=== PATIENT | male | born 1955 | race Two or more races ===

== ENCOUNTER 2020-02-01 09:12 | Inpatient (IN) | payer MEDICARE, OTHER ==
[2020-02-01] VITALS (13 sets, daily range): BP systolic 136–167; BP diastolic 72–95
[~2020-02-01] VITALS: Ht 162.6 cm; Wt 73.4 kg
[~2020-02-01 09:12] MED LIST: ASPIRIN EC81 MG ORAL; Acetaminophen (Non formulary) 100 ML IV ONE; Atropine Sulfate 0.4mg/ml inj IVP PRN; CARVEDILOL25 MG ORAL; DiphenhydrAMINE 50mg/ml Inj IVP PRN; HYDROcodone/Acetamin 5/325 tab ORAL PRN; HYDROcodone/Acetamin 7.5/325 tab ORAL PRN; Hydromorphone 0.5mg/0.5ml inj IVP PRN; Ketorolac 30mg Inj IV PRN; LORazepam Inj 2mg/ml 1ml IV PRN; LOSARTAN POTASS50 MG ORAL; LR 1000ml 1,000 ML IVLG SCH; Labetalol 5mg/ml 20ml vial IV PRN; METFORMIN HCL500 M1 ORAL; Meperidine 25mg/1ml Inj (FOR RIGORS ONLY) IV PRN; Metoclopramide 10mg/2ml Inj IVP PRN; Midazolam 2mg/2ml Inj IVP PRN; PRILOSEC OTC20 MG ORAL; RANEXA500 MG ORAL; TRADJENTA5 MG PO; ceFAZolin sod 1 GM in NS 55 ML IVPB ONE; oxyCODONE HCL/Acetaminophen 5/325mg ORAL PRN
--- NOTE | 2020-02-01 10:19 | Anethesia Preoperative Eval ---
Anesthesia Pre-op PMH/ROS General Date of Evaluation: Feb 01, 2020 Time of Evaluation: 11:53 Anesthesiologist: Carri ASA Score: ASA 3 Mallampati Score Class I : Soft palate, uvula, fauces, pillars visible Class II: Soft palate, uvula, fauces visible Class III: Soft palate, base of uvula visible Class IV: Only hard plate visible Mallampati Classification: Class III Surgeon: Molina Diagnosis: Abd Pain Surgical Procedure: Right Laparoscopic vs open Nephrectomy Anesthesia History: none Family History: no anesthesia problems Allergies: Coded Allergies: LISINOPRIL (Verified Allergy, Intermediate, ' throat closes up', 01/31/20) Medications: see eMAR Patient NPO?: Yes Past Medical History Cardiovascular: Reports: HTN, CAD - Stent, other - HL Gastrointestinal/Genitourinary: Reports: GERD Endocrine: Reports: DM Other: obesity - BMI 34 Anesthesia Pre-op Phys. Exam Physician Exam Vital Signs Date Time Temp Pulse Resp B/P (MAP) Pulse Ox O2 Delivery O2 Flow Rate FiO2 02/01/20 10:15 Room Air 02/01/20 10:35 98.2 83 18 144/77 (99) 98 Constitutional: NAD Neurologic: CN 2-12 intact Cardiovascular: RRR Respiratory: CTA Gastrointestinal: S/NT/ND Airway Exam Mallampati Score: Class III MO: limited ROM: limited Teeth: missing, intact Anesthesia Pre-op A/P Risk Assessment & Plan Assessment: ASA 3 Plan: GA, SED, GlideScope Status Change Before Surgery: No Pre-Antibiotics Dru Grm Ancef IV Given Within 1 Hr of Incision: Yes Time Given: 12:06 Alexey Christina MD Feb 01, 2020 10:18
--- NOTE | 2020-02-01 10:31 | Pre-Procedure Note/Attestation ---
Pre-Procedure Note/Attestation Complete Prior to Procedure Planned Procedure: right Procedure Narrative: Right radical nephrectomy Indications for Procedure Pre-Operative Diagnosis: right renal mass Attestation I attest that I discussed the nature of the procedure; its benefits; risks and complications; and alternatives (and the risks and benefits of such alternatives), prior to the procedure, with the patient (or the patient's legal benefits representative). I attest that, if there was a reasonable possibility of needing a blood transfusion, the patient (or the patient's legal benefits representative) was given the [facility] standardized written summary, pursuant to the Keshawn Juan M Blood Safety Act ([place] Health and Safety Code # 1645, as amended). I attest that I re-evaluated the patient just prior to the surgery and that there has been no change in the patient's H&P, except as documented below: Saúl Auguste MD Feb 01, 2020 10:31
[2020-02-01] MEDS ORDERED: Lidocaine 1% MPF 10mg/ml 5ml ONE (11:07)
[2020-02-01] MEDS ORDERED: Sodium Chloride 10ml vial INJ ONE (11:07)
[2020-02-01] MEDS ORDERED: fentaNYL 100 mcg/2 mL IV ONE (11:53)
[2020-02-01] MEDS ORDERED: Bupivacaine 0.5% Inj 30 ml vial INJ ONE (11:53)
[2020-02-01] MEDS ORDERED: Midazolam 2mg/2ml Inj ONE (11:54)
[2020-02-01] MEDS ORDERED: Sterile Water Irrig 1000ml IRRIG ONE (12:00)
[2020-02-01] MEDS ORDERED: Rocuronium Bromide 50mg/5ml Inj IV ONE (12:00)
[2020-02-01] MEDS ORDERED: LR 1000ml ONE (12:00)
[2020-02-01] MEDS ORDERED: NS Irrig 1000ml ONE (12:00)
[2020-02-01] MEDS ORDERED: BRILINTA90 MG PO (12:02)
--- NOTE | 2020-02-01 12:06 | Brief Operative Note ---
Immediate Post Operative Note Operative Note Pre-op Diagnosis: right renal mass Procedure: right radical nephrectomy Post-op Diagnosis: same Post-op Diagnosis: same as pre-op Surgeon: Socrates Auguste Anesthesia: general Specimen: yes Complications: none Condition: stable Fluids: 500 Estimated Blood Loss: minimal Implant(s) used?: No Saúl Auguste MD Feb 01, 2020 12:06
[2020-02-01] MEDS ORDERED: Neostigmine 1mg/ml 10ml Inj ONE (12:52)
[2020-02-01] MEDS ORDERED: Glycopyrrolate 0.2mg/ml 1ml Vial ONE (12:52)
--- NOTE | 2020-02-01 13:19 | Immediate Post-Op Evaluation ---
Immediate Post-Op Evalulation Immediate Post-Op Evalulation Procedure: Laparoscopic Right Nephrectomy Date of Evaluation: Feb 01, 2020 Time of Evaluation: 13:32 IV Fluids: 800 LR Blood Products: 0 Estimated Blood Loss: 50 Urinary Output: 200 Blood Pressure Systolic: 155 Blood Pressure Diastolic: 85 Pulse Rate: 79 Respiratory Rate: 16 O2 Sat by Pulse Oximetry: 99 Temperature (Fahrenheit): 97.5 Pain Score (1-10): 2 Nausea: No Vomiting: No Patient Status: awake, reacts, patent, extubated, none Hydration Status: adequate Dru Gram Ancef IV Given Within 1 Hr of Incision: Yes Time Given: 12:06 Alexey Christina MD Feb 01, 2020 13:19
--- NOTE | 2020-02-01 13:20 | 48 Hour Post Anesthesia Eval ---
Post Anesthesia Evaluation Procedure: Laparoscopic Right Nephrectomy Date of Evaluation: Feb 01, 2020 Time of Evaluation: 15:46 Blood Pressure Systolic: 145 0: 78 Pulse Rate: 74 Respiratory Rate: 18 Temperature (Fahrenheit): 98 O2 Sat by Pulse Oximetry: 97 Nausea: No Vomiting: No Pain Intensity: 2 Hydration Status: adequate Cardiopulmonary Status: Stable Mental Status/LOC: patient returned to baseline Follow-up Care/Observations: 0 Post-Anesthesia Complications: 0 Follow-up care needed: N/A Alexey Christina MD Feb 01, 2020 13:20
[2020-02-01] MEDS: fentaNYL 100 mcg/2 mL IV PRN ×3 (13:29→14:04)
[2020-02-01 16:14] LABS: BASOPHILS % (AUTO) 1.6 % (0.0-2.0); EOSINOPHILS % (AUTO) 2.2 % (0.0-3.0); HEMATOCRIT 36.8 % (42.0-52.0); HEMOGLOBIN 12.5 G/DL (14.2-18.0); LYMPHOCYTES % (AUTO) 15.4 % (20.0-45.0); MEAN CORPUSCULAR VOLUME 91 FL (80-99); NEUTROPHILS % (AUTO) 68.8 % (45.0-75.0); PLATELET COUNT 314 K/UL (150-450); RED BLOOD COUNT 4.05 M/UL (4.70-6.10); RED CELL DISTRIBUTION WIDTH 13.5 % (11.6-14.8); WHITE BLOOD COUNT 5.8 K/UL (4.8-10.8)
[2020-02-01 16:42] LABS: BLOOD UREA NITROGEN 12 mg/dL (7-18); CALCIUM 8.8 MG/DL (8.5-10.1); CARBON DIOXIDE 31 MMOL/L (21-32); CREATININE 1.4 MG/DL (0.55-1.30)
[2020-02-01 16:53] LABS: CHLORIDE 104 MMOL/L (98-107); POTASSIUM 4.3 MMOL/L (3.5-5.1); SODIUM 140 MMOL/L (136-145)
[2020-02-01] MEDS: HYDROmorphone 1mg/ml Carpuject IVP PRN ×2 (17:59→23:08)
[2020-02-01] MEDS: NovoLOG Insulin Flexpen SUBQ SCH (18:00)
[2020-02-02] VITALS (8 sets, daily range): BP systolic 113–163; BP diastolic 71–95
[2020-02-02] MEDS: HYDROmorphone 1mg/ml Carpuject IVP PRN ×2 (04:51→09:24)
[2020-02-02] MEDS: NovoLOG Insulin Flexpen SUBQ SCH ×5 (06:00→22:02)
[2020-02-02] MEDS: Carvedilol 25mg Tab ORAL SCH (10:09)
[2020-02-02] MEDS: Aspirin EC 81mg tab ORAL SCH (10:09)
[2020-02-02] MEDS: Losartan 50mg tab ORAL SCH (10:10)
--- NOTE | 2020-02-02 10:45 | History and Physical Report ---
DATE OF ADMISSION: 02/01/2020 HISTORY OF PRESENT ILLNESS: This is a 64-year-old male who has undergone successful surgery yesterday consisting of right radical nephrectomy. He is on clear liquid diet. He states he is feeling better. He is having pain in the surgical site. PAST MEDICAL HISTORY: Notable for hypertension, chronic anticoagulation with Brilinta. He is also known diabetic, history of chronic LBBB, dyslipidemia. PAST SURGICAL HISTORY: Including LAD stent and previous non-STEMI. SOCIAL HISTORY: He has been a smoker, quit many years ago. Previous alcohol use. HOME MEDICATIONS: Tylenol, amlodipine 10 mg daily, aspirin 81 daily, , Coreg 25 b.i.d., Lasix 20 daily, losartan 100 daily, metformin 500 daily, and Ranexa. REVIEW OF SYSTEMS: Denies any headaches, hematemesis, melena, hematochezia, .. PHYSICAL EXAMINATION: GENERAL: Reveals a 64-year-old male. VITAL SIGNS: Blood pressure is 130/80, heart rate 84, respiratory rate 18, temperature afebrile HEENT: Unremarkable. CHEST: Clear breath sounds bilaterally. ABDOMEN: Soft. EXTREMITIES: There is no edema. NEUROLOGIC: Nonfocal. LABORATORY AND DIAGNOSTIC DATA: Laboratory testing preoperatively is unremarkable. Latest hemoglobin 12.5, creatinine 1.4, glucose 128. IMPRESSION: 1. Postop day #1 status post nephrectomy. 2. CAD. 3. Chronic anticoagulation. 4. Hypertension. 5. Diabetes mellitus. DISCUSSION: Continue aspirin and Coreg. Continue pain medications. Continue losartan. We will initiate clear liquid diet, insulin sliding scale, IV fluids. We will resume Brilinta after discussing with Urology. We will follow carefully. Bi Ray M.D. DR: Surinder JOB#: [id number] CC:
[2020-02-02 11:30] LABS: BASOPHILS % (AUTO) 1.5 % (0.0-2.0); EOSINOPHILS % (AUTO) 6.3 % (0.0-3.0); HEMATOCRIT 33.9 % (42.0-52.0); HEMOGLOBIN 11.5 G/DL (14.2-18.0); LYMPHOCYTES % (AUTO) 29.1 % (20.0-45.0); MEAN CORPUSCULAR VOLUME 91 FL (80-99); MONOCYTES % (AUTO) 12.9 % (1.0-10.0); NEUTROPHILS % (AUTO) 50.2 % (45.0-75.0); PLATELET COUNT 332 K/UL (150-450); RED BLOOD COUNT 3.71 M/UL (4.70-6.10); RED CELL DISTRIBUTION WIDTH 13.8 % (11.6-14.8); WHITE BLOOD COUNT 4.4 K/UL (4.8-10.8)
[2020-02-02 11:42] LABS: CALCIUM 8.5 MG/DL (8.5-10.1); CREATININE 1.6 MG/DL (0.55-1.30); POTASSIUM 3.9 MMOL/L (3.5-5.1)
[2020-02-02] MEDS: ceFAZolin sod 1 GM in D5W 55 ML IVPB SCH ×2 (14:07→22:03)
[2020-02-02] MEDS: ALPRAZolam 0.5mg tab ORAL PRN (20:15)
[2020-02-03] VITALS: BP 129/93
[2020-02-03 04:00] VITALS: BP 146/93
[2020-02-03] MEDS: ceFAZolin sod 1 GM in D5W 55 ML IVPB SCH (06:19)
[2020-02-03] MEDS: NovoLOG Insulin Flexpen SUBQ SCH ×4 (06:30→21:00)
[2020-02-03 08:00] VITALS: BP 148/95
[2020-02-03] MEDS: Carvedilol 25mg Tab ORAL SCH (08:24)
[2020-02-03] MEDS: Aspirin EC 81mg tab ORAL SCH (08:25)
[2020-02-03] MEDS: Losartan 50mg tab ORAL SCH (08:25)
[2020-02-03 09:00] LABS: BASOPHILS % (AUTO) 1.7 % (0.0-2.0); EOSINOPHILS % (AUTO) 5.5 % (0.0-3.0); HEMATOCRIT 34.4 % (42.0-52.0); HEMOGLOBIN 11.2 G/DL (14.2-18.0); LYMPHOCYTES % (AUTO) 34.2 % (20.0-45.0); MEAN CORPUSCULAR VOLUME 94 FL (80-99); MONOCYTES % (AUTO) 13.1 % (1.0-10.0); NEUTROPHILS % (AUTO) 45.5 % (45.0-75.0); PLATELET COUNT 356 K/UL (150-450); RED BLOOD COUNT 3.67 M/UL (4.70-6.10); RED CELL DISTRIBUTION WIDTH 13.2 % (11.6-14.8); WHITE BLOOD COUNT 5.3 K/UL (4.8-10.8)
[2020-02-03 09:11] LABS: CALCIUM 8.5 MG/DL (8.5-10.1); CREATININE 2.1 MG/DL (0.55-1.30); POTASSIUM 3.9 MMOL/L (3.5-5.1)
[2020-02-03] MEDS ORDERED: Levofloxacin 500mg tab ORAL SCH (09:14)
--- NOTE | 2020-02-03 11:36 | Pulmonology Progress Note ---
Subjective Interval Events: Had wheezing last night; IV fluids dc; received Lasix Constitutional: Reports: no symptoms HEENT: Repors: no symptoms Respiratory: Reports: no symptoms Cardiovascular: Reports: no symptoms Gastrointestinal/Abdominal: Reports: no symptoms Allergies: Coded Allergies: LISINOPRIL (Verified Allergy, Intermediate, ' throat closes up', 01/31/20) Objective Last 24 Hour Vital Signs Date Time Temp Pulse Resp B/P (MAP) Pulse Ox O2 Delivery O2 Flow Rate FiO2 02/03/20 08:54 98.1 02/03/20 08:25 148/95 02/03/20 08:24 85 148/95 02/03/20 04:00 98.1 84 19 146/93 (110) 98 02/03/20 00:00 98.6 81 20 129/93 (105) 98 02/02/20 23:00 98.5 80 19 128/95 (106) 98 02/02/20 21:54 98 Nasal Cannula 2.0 28 02/02/20 21:00 Nasal Cannula 2.0 02/02/20 20:50 88 19 147/88 (107) 98 02/02/20 20:00 98.2 88 21 163/93 (116) 98 02/02/20 18:28 97.9 02/02/20 16:00 97.4 81 17 138/81 (100) 96 02/02/20 14:21 97.9 02/02/20 12:00 98.1 75 20 129/79 (96) 95 Intake and Output 02/02/20 02/03/20 19:00 07:00 Intake Total 550 ml 425 ml Output Total 475 ml 750 ml Balance 75 ml -325 ml Intake Oral 550 ml 425 ml Output Urine Total 475 ml 750 ml # Voids 1 5 General Appearance: no acute distress HEENT: normocephalic Respiratory: chest wall non-tender, lungs clear Cardiovascular: normal peripheral pulses, normal rate Abdomen: normal bowel sounds Microbiology Date/Time Source Procedure Growth Status 02/01/20 10:40 Nasal Nares MRSA Culture - Final Staphylococcus Aureus - Mrsa Complete Laboratory Tests 02/02/20 12:30: POC Whole Blood Glucose 119H 02/02/20 15:46: POC Whole Blood Glucose [Pending] 02/02/20 17:03: POC Whole Blood Glucose 106 02/02/20 21:50: POC Whole Blood Glucose 149H 10/23/20 05:30: POC Whole Blood Glucose [Pending] 02/03/20 08:20: White Blood Count 5.3, Red Blood Count 3.67L, Hemoglobin 11.2L, Hematocrit 34.4L , Mean Corpuscular Volume 94, Mean Corpuscular Hemoglobin 30.5, Mean Corpuscular Hemoglobin Concent 32.5, Red Cell Distribution Width 13.2, Platelet Count 356, Mean Platelet Volume 6.1L, Neutrophils (%) (Auto) 45.5, Lymphocytes (%) (Auto) 34.2, Monocytes (%) (Auto) 13.1H, Eosinophils (%) (Auto) 5.5H, Basophils (%) (Auto) 1.7, Sodium Level 134L, Potassium Level 3.9, Chloride Level 100, Carbon Dioxide Level 28, Anion Gap 6, Blood Urea Nitrogen 18, Creatinine 2.1H, Estimat Glomerular Filtration Rate 32.1, Glucose Level 100, Calcium Level 8.5 02/03/20 11:27: POC Whole Blood Glucose 113H Current Medications Medications (Trade) Dose Ordered Sig/Lor Route PRN Reason Start Time Stop Time Status Last Admin Dose Admin Alprazolam (Xanax) 0.5 mg Q8H PRN ORAL For Anxiety 02/02/20 18:45 02/09/20 18:44 02/02/20 20:15 Aspirin (Ecotrin) 81 mg DAILY ORAL 02/02/20 09:00 03/18/20 08:59 02/03/20 08:25 Carvedilol (Coreg) 25 mg DAILY ORAL 02/02/20 09:00 03/03/20 08:59 02/03/20 08:24 Dextrose (Dextrose 50%) 25 ml Q30M PRN IV Hypoglycemia 02/01/20 16:45 05/01/20 16:44 Dextrose (Dextrose 50%) 50 ml Q30M PRN IV Hypoglycemia 02/01/20 16:45 05/01/20 16:44 Docusate Sodium (Colace) 100 mg TWICE A DAY ORAL 02/03/20 18:00 03/04/20 17:59 Famotidine (Pepcid) 20 mg BID ORAL 02/02/20 19:45 05/02/20 19:44 02/03/20 08:25 Hydromorphone HCl (Dilaudid) 2 mg Q4H PRN IVP Severe Pain (Pain Scale 7-10) 02/02/20 13:30 02/09/20 13:29 02/03/20 08:24 Insulin Aspart (NovoLOG) AC+HS SUBQ 02/02/20 17:00 05/01/20 17:59 02/02/20 22:02 Levofloxacin (Levaquin) 250 mg DAILY ORAL 02/04/20 09:00 02/11/20 08:59 Losartan Potassium (Cozaar) 100 mg DAILY ORAL 02/02/20 09:00 03/03/20 08:59 02/03/20 08:25 Ondansetron HCl (Zofran) 4 mg Q6H PRN IVP Nausea & Vomiting 02/01/20 16:45 03/02/20 16:44 Assessment/Plan Assessment/Plan IMPRESSION: 1. Postop day #1 status post nephrectomy. 2. CAD. 3. Chronic anticoagulation. 4. Hypertension. 5. Diabetes mellitus. DISCUSSION: Continue aspirin and Coreg. Continue pain medications. Continue losartan. Advance diet, Continue insulin sliding scale, IV fluids. Hold Brilinta for now (discussed with Urology). I will follow carefully. Check labs AM Dc planning for home in [place] Had wheezing last night Received Lasix IV fluids dc Fortino Mcarthur Omar Syed MD Feb 03, 2020 11:36
[2020-02-03 12:00] VITALS: BP 128/77
--- NOTE | 2020-02-03 13:55 | Consultation ---
History of Present Illness General Date patient seen: Feb 03, 2020 Present Illness HPI This is a very pleasant 64-year-old male who is status post right radical nephrectomy that he is complaining of pubic abdominal pelvic pain. Postoperative patient has been doing well tolerating diet no nausea vomiting fever chills. His labs are noted. States he feels on the left lower pubic area some discomfort surgery called to eval and assist with care and planning. Patient seen, patient by, chart reviewed. No nausea vomiting fever chills. Otherwise comfortable. Minimizing pain medication use. Has not been significantly amatory yet. Respiratory stable. Allergies: Coded Allergies: LISINOPRIL (Verified Allergy, Intermediate, ' throat closes up', 01/31/20) COVID-19 Screening Contact w/high risk pt: No Experienced COVID-19 symptoms?: No Medication History Scheduled Aspirin Ec* (Aspirin Ec*), 81 MG ORAL DAILY, (Reported) Carvedilol* (Carvedilol*), 25 MG ORAL EVERY 12 HOURS, (Reported) Linagliptin (Tradjenta), 5 MG PO BID, (Reported) Losartan Potassium* (Losartan Potassium*), 100 MG ORAL DAILY, (Reported) Metformin Hcl* (Metformin Hcl*), 500 MG ORAL TWICE A DAY, (Reported) Omeprazole Magnesium (Prilosec Otc), 20 MG ORAL DAILY, (Reported) Ranolazine* (Ranexa*), 1,000 MG ORAL EVERY 12 HOURS, (Reported) Ticagrelor* (Brilinta*), 90 MG PO BID, (Reported) Patient History History Provided By: Patient, Medical Record, PMD Healthcare decision maker Resuscitation status Advanced Directive on File Past Medical/Surgical History Past Medical/Surgical History: (1) Pelvic pain (2) Right renal mass Review of Systems Review of Symptoms General ROS: no weight loss or fever Psychological ROS: no depression or mood changes, no memory loss Ophthalmic ROS: no visual changes or eye irritation ENT ROS: no nasal congestion, hearing loss, dizziness Allergy and Immunology ROS: no allergic symptoms or urticaria Hematological and Lymphatic ROS: no swollen glands, unusual bleeding or bruising Endocrine ROS: no polyuria, polydipsia, weight changes, temperature intolerance Respiratory ROS: no cough, shortness of breath, or wheezing Cardiovascular ROS: no chest pain or dyspnea on exertion Gastrointestinal ROS: denies abdominal pain, bright red blood in stool. Musculoskeletal ROS: no myalgias or arthralgias Neurological ROS: no TIA or stroke symptoms Dermatological ROS: no new or changing skin lesions, rashes or pruritis Physical Exam Physical Exam General appearance: alert, cooperative, no distress, appears stated age Head: Normocephalic, without obvious abnormality, atraumatic Eyes: conjunctivae/corneas clear. PERRL, EOM's intact. Fundi benign Throat: Lips, mucosa, and tongue normal. Teeth and gums normal Neck: supple, symmetrical, trachea midline, no adenopathy, thyroid: not enlarged, symmetric, no tenderness/mass/nodules, no carotid bruit and no JVD Lungs: clear to auscultation bilaterally Heart: regular rate and rhythm, S1, S2 normal, no murmur, click, rub or gallop Abdomen: soft, non-tender. Bowel sounds normal. No masses, no organomegaly Extremities: extremities normal, atraumatic, no cyanosis or edema Pulses: 2+ and symmetric Skin: Skin color, texture, turgor normal. No rashes or lesions Neurologic: Grossly normal Last 24 Hour Vital Signs Date Time Temp Pulse Resp B/P (MAP) Pulse Ox O2 Delivery O2 Flow Rate FiO2 02/03/20 13:27 98.2 02/03/20 12:00 98.2 78 17 128/77 (94) 97 02/03/20 09:00 Nasal Cannula 2.0 02/03/20 08:54 98.1 02/03/20 08:25 148/95 02/03/20 08:24 85 148/95 02/03/20 08:00 98.6 85 20 148/95 (112) 98 02/03/20 04:00 98.1 84 19 146/93 (110) 98 02/03/20 00:00 98.6 81 20 129/93 (105) 98 02/02/20 23:00 98.5 80 19 128/95 (106) 98 02/02/20 21:54 98 Nasal Cannula 2.0 28 02/02/20 21:00 Nasal Cannula 2.0 02/02/20 20:50 88 19 147/88 (107) 98 02/02/20 20:00 98.2 88 21 163/93 (116) 98 02/02/20 18:28 97.9 02/02/20 16:00 97.4 81 17 138/81 (100) 96 02/02/20 14:21 97.9 Intake and Output 02/02/20 02/03/20 19:00 07:00 Intake Total 550 ml 425 ml Output Total 475 ml 750 ml Balance 75 ml -325 ml Intake Oral 550 ml 425 ml Output Urine Total 475 ml 750 ml # Voids 1 5 Laboratory Tests Test 02/02/20 15:46 02/02/20 17:03 02/02/20 21:50 02/03/20 05:30 POC Whole Blood Glucose Pending 106 MG/DL (74-106) 149 MG/DL (74-106) H Pending Test 02/03/20 08:20 02/03/20 11:27 White Blood Count 5.3 K/UL (4.8-10.8) Red Blood Count 3.67 M/UL (4.70-6.10) L Hemoglobin 11.2 G/DL (14.2-18.0) L Hematocrit 34.4 % (42.0-52.0) L Mean Corpuscular Volume 94 FL (80-99) Mean Corpuscular Hemoglobin 30.5 PG (27.0-31.0) Mean Corpuscular Hemoglobin Concent 32.5 G/DL (32.0-36.0) Red Cell Distribution Width 13.2 % (11.6-14.8) Platelet Count 356 K/UL (150-450) Mean Platelet Volume 6.1 FL (6.5-10.1) L Neutrophils (%) (Auto) 45.5 % (45.0-75.0) Lymphocytes (%) (Auto) 34.2 % (20.0-45.0) Monocytes (%) (Auto) 13.1 % (1.0-10.0) H Eosinophils (%) (Auto) 5.5 % (0.0-3.0) H Basophils (%) (Auto) 1.7 % (0.0-2.0) Sodium Level 134 MMOL/L (136-145) L Potassium Level 3.9 MMOL/L (3.5-5.1) Chloride Level 100 MMOL/L (98-107) Carbon Dioxide Level 28 MMOL/L (21-32) Anion Gap 6 mmol/L (5-15) Blood Urea Nitrogen 18 mg/dL (7-18) Creatinine 2.1 MG/DL (0.55-1.30) H Estimat Glomerular Filtration Rate 32.1 mL/min (>60) Glucose Level 100 MG/DL (74-106) Calcium Level 8.5 MG/DL (8.5-10.1) POC Whole Blood Glucose 113 MG/DL (74-106) H Height (Feet): 5 Height (Inches): 4.00 Weight (Pounds): 162 Medications Current Medications Medications (Trade) Dose Ordered Sig/Lor Route PRN Reason Start Time Stop Time Status Last Admin Dose Admin Alprazolam (Xanax) 0.5 mg Q8H PRN ORAL For Anxiety 02/02/20 18:45 02/09/20 18:44 02/02/20 20:15 Aspirin (Ecotrin) 81 mg DAILY ORAL 02/02/20 09:00 03/18/20 08:59 02/03/20 08:25 Carvedilol (Coreg) 25 mg DAILY ORAL 02/02/20 09:00 03/03/20 08:59 02/03/20 08:24 Dextrose (Dextrose 50%) 25 ml Q30M PRN IV Hypoglycemia 02/01/20 16:45 05/01/20 16:44 Dextrose (Dextrose 50%) 50 ml Q30M PRN IV Hypoglycemia 02/01/20 16:45 05/01/20 16:44 Docusate Sodium (Colace) 100 mg TWICE A DAY ORAL 02/03/20 18:00 03/04/20 17:59 Famotidine (Pepcid) 20 mg BID ORAL 02/02/20 19:45 05/02/20 19:44 02/03/20 08:25 Hydromorphone HCl (Dilaudid) 2 mg Q4H PRN IVP Severe Pain (Pain Scale 7-10) 02/02/20 13:30 02/09/20 13:29 02/03/20 12:57 Insulin Aspart (NovoLOG) AC+HS SUBQ 02/02/20 17:00 05/01/20 17:59 02/02/20 22:02 Levofloxacin (Levaquin) 250 mg DAILY ORAL 02/04/20 09:00 02/11/20 08:59 Losartan Potassium (Cozaar) 100 mg DAILY ORAL 02/02/20 09:00 03/03/20 08:59 02/03/20 08:25 Ondansetron HCl (Zofran) 4 mg Q6H PRN IVP Nausea & Vomiting 02/01/20 16:45 03/02/20 16:44 Assessment/Plan Problem List: (1) Pelvic pain Assessment & Plan: 61-year-old male status post right radical nephrectomy complaining some few pubic pelvic pain. Incision is a low Pfannenstiel identified to be clean dry intact jen in place. No seroma hematoma pus or drainage identified. On palpation no significant mass anomaly identified. Pain likely referred from recent surgery and will be monitored to ensure resolution. Labs okay tolerating diet passing flatus no bowel movement yet. Bowel regimen placed. Will monitor with serial abdominal examinations. Okay for diet as tolerated. Activity as tolerated. Incentive spirometry 10 times per hour. Meds reviewed. Continue with current care plan. Thank you for allowing participate patient's care ICD Codes: R10.2 - Pelvic and perineal pain SNOMED: 27701786 (2) Right renal mass ICD Codes: N28.89 - Other specified disorders of kidney and ureter SNOMED: 399751089 Juancarlos Hall Feb 03, 2020 13:55
[2020-02-03] MEDS: ALPRAZolam 0.5mg tab ORAL PRN (15:16)
[2020-02-03] MEDS ORDERED: VENTOLIN HFA18 GM INH (15:51)
[2020-02-03 16:00] VITALS: BP 121/69
[2020-02-03] MEDS ORDERED: Albuterol 90mcg Inhaler 8gm INH PRN (17:15)
[2020-02-03] MEDS: Docusate 100mg cap ORAL SCH (17:33)
[2020-02-03] MEDS ORDERED: Docusate 100mg cap ORAL SCH (18:00)
[2020-02-03 20:00] VITALS: BP 129/70
[2020-02-03] MEDS: Albuterol ud Inhalation HHN PRN (21:34)
[2020-02-04] VITALS: BP 141/74
[2020-02-04] MEDS: Albuterol ud Inhalation HHN PRN ×2 (03:49→09:23)
[2020-02-04 04:00] VITALS: BP 159/90
[2020-02-04] MEDS: NovoLOG Insulin Flexpen SUBQ SCH ×2 (06:03→11:30)
[2020-02-04 06:26] LABS: BASOPHILS % (AUTO) 1.8 % (0.0-2.0); EOSINOPHILS % (AUTO) 5.6 % (0.0-3.0); HEMATOCRIT 34.8 % (42.0-52.0); HEMOGLOBIN 11.5 G/DL (14.2-18.0); LYMPHOCYTES % (AUTO) 28.5 % (20.0-45.0); MEAN CORPUSCULAR VOLUME 93 FL (80-99); MONOCYTES % (AUTO) 12.1 % (1.0-10.0); NEUTROPHILS % (AUTO) 52.1 % (45.0-75.0); PLATELET COUNT 399 K/UL (150-450); RED BLOOD COUNT 3.74 M/UL (4.70-6.10); RED CELL DISTRIBUTION WIDTH 12.8 % (11.6-14.8); WHITE BLOOD COUNT 5.2 K/UL (4.8-10.8)
[2020-02-04 06:44] LABS: ALBUMIN 3.2 G/DL (3.4-5.0); ALBUMIN/GLOBULIN RATIO 0.9 (1.0-2.7); BILIRUBIN,TOTAL 0.6 MG/DL (0.2-1.0); CALCIUM 8.6 MG/DL (8.5-10.1); CREATININE 1.9 MG/DL (0.55-1.30); POTASSIUM 3.9 MMOL/L (3.5-5.1)
[2020-02-04 08:00] VITALS: BP 146/75
[2020-02-04] MEDS ORDERED: Levofloxacin 500mg tab ORAL SCH (09:00)
[2020-02-04] MEDS: Carvedilol 25mg Tab ORAL SCH (09:18)
[2020-02-04] MEDS: Docusate 100mg cap ORAL SCH (09:18)
[2020-02-04] MEDS: Aspirin EC 81mg tab ORAL SCH (09:19)
[2020-02-04] MEDS: Losartan 50mg tab ORAL SCH (09:19)
--- NOTE | 2020-02-04 11:05 | Pulmonology Progress Note ---
Subjective Interval Events: Doing much better Constitutional: Reports: no symptoms HEENT: Repors: no symptoms Respiratory: Reports: no symptoms Cardiovascular: Reports: no symptoms Gastrointestinal/Abdominal: Reports: no symptoms Allergies: Coded Allergies: LISINOPRIL (Verified Allergy, Intermediate, ' throat closes up', 01/31/20) Objective Last 24 Hour Vital Signs Date Time Temp Pulse Resp B/P (MAP) Pulse Ox O2 Delivery O2 Flow Rate FiO2 02/04/20 09:33 82 18 100 Room Air 21 80 18 95 02/04/20 09:26 95 Room Air 21 02/04/20 09:19 146/75 02/04/20 09:18 81 146/75 02/04/20 08:00 97.9 81 20 146/75 (98) 93 02/04/20 04:00 98.1 71 20 159/90 (113) 99 02/04/20 03:49 73 18 99 Nasal Cannula 2.0 28 69 18 96 02/04/20 00:00 98.0 67 20 141/74 (96) 100 02/03/20 21:40 72 18 99 Nasal Cannula 2.0 28 02/03/20 21:39 99 Nasal Cannula 2.0 28 02/03/20 21:37 76 18 100 Nasal Cannula 2.0 28 70 18 99 02/03/20 21:00 Nasal Cannula 2.0 02/03/20 20:00 97.8 69 20 129/70 (89) 96 02/03/20 18:10 98.8 02/03/20 16:00 98.8 75 20 121/69 (86) 97 02/03/20 13:27 98.2 02/03/20 12:00 98.2 78 17 128/77 (94) 97 Intake and Output 02/03/20 02/04/20 19:00 07:00 Intake Total 800 ml 750 ml Output Total 650 ml 700 ml Balance 150 ml 50 ml Intake Oral 800 ml 750 ml Output Urine Total 650 ml 700 ml # Voids 4 5 # Bowel Movements 1 General Appearance: no acute distress HEENT: normocephalic Respiratory: chest wall non-tender, lungs clear Cardiovascular: normal peripheral pulses, normal rate Abdomen: normal bowel sounds Laboratory Tests 02/03/20 11:27: POC Whole Blood Glucose 113H 02/03/20 16:07: POC Whole Blood Glucose 108H 02/03/20 21:20: POC Whole Blood Glucose 113H 02/04/20 05:00: White Blood Count 5.2, Red Blood Count 3.74L, Hemoglobin 11.5L, Hematocrit 34.8L , Mean Corpuscular Volume 93, Mean Corpuscular Hemoglobin 30.7, Mean Corpuscular Hemoglobin Concent 33.0, Red Cell Distribution Width 12.8, Platelet Count 399, Mean Platelet Volume 5.9L, Neutrophils (%) (Auto) 52.1, Lymphocytes (%) (Auto) 28.5, Monocytes (%) (Auto) 12.1H, Eosinophils (%) (Auto) 5.6H, Basophils (%) (Auto) 1.8, Sodium Level 134L, Potassium Level 3.9, Chloride Level 99, Carbon D ioxide Level 30, Anion Gap 5, Blood Urea Nitrogen 18, Creatinine 1.9H, Estimat Glomerular Filtration Rate 36.0, Glucose Level 124H, Calcium Level 8.6, Total Bilirubin 0.6, Aspartate Amino Transf (AST/SGOT) 26, Alanine Aminotransferase (ALT/SGPT) 20, Alkaline Phosphatase 60, Total Protein 6.6, Albumin 3.2L, Globulin 3.4, Albumin/Globulin Ratio 0.9L 02/04/20 06:02: POC Whole Blood Glucose 108H Current Medications Medications (Trade) Dose Ordered Sig/Lor Route PRN Reason Start Time Stop Time Status Last Admin Dose Admin Albuterol Sulfate (Proventil) 2.5 mg Q6H PRN HHN Shortness of Breath 02/03/20 18:00 02/08/20 17:59 02/04/20 09:23 Alprazolam (Xanax) 0.5 mg Q8H PRN ORAL For Anxiety 02/02/20 18:45 02/09/20 18:44 02/03/20 15:16 Aspirin (Ecotrin) 81 mg DAILY ORAL 02/02/20 09:00 03/18/20 08:59 02/04/20 09:19 Carvedilol (Coreg) 25 mg DAILY ORAL 02/02/20 09:00 03/03/20 08:59 02/04/20 09:18 Dextrose (Dextrose 50%) 25 ml Q30M PRN IV Hypoglycemia 02/01/20 16:45 05/01/20 16:44 Dextrose (Dextrose 50%) 50 ml Q30M PRN IV Hypoglycemia 02/01/20 16:45 05/01/20 16:44 Docusate Sodium (Colace) 100 mg TWICE A DAY ORAL 02/03/20 18:00 03/04/20 17:59 02/04/20 09:18 Famotidine (Pepcid) 20 mg BID ORAL 02/02/20 19:45 05/02/20 19:44 02/04/20 09:18 Hydromorphone HCl (Dilaudid) 2 mg Q4H PRN IVP Severe Pain (Pain Scale 7-10) 02/02/20 13:30 02/09/20 13:29 02/04/20 09:20 Insulin Aspart (NovoLOG) AC+HS SUBQ 02/02/20 17:00 05/01/20 17:59 02/02/20 22:02 Levofloxacin (Levaquin) 250 mg DAILY ORAL 02/04/20 09:00 02/11/20 08:59 02/04/20 09:18 Losartan Potassium (Cozaar) 100 mg DAILY ORAL 02/02/20 09:00 03/03/20 08:59 02/04/20 09:19 Ondansetron HCl (Zofran) 4 mg Q6H PRN IVP Nausea & Vomiting 02/01/20 16:45 03/02/20 16:44 02/04/20 05:58 Assessment/Plan Assessment/Plan IMPRESSION: 1. Postop day #3 status post nephrectomy. 2. CAD. 3. Chronic anticoagulation. 4. Hypertension. 5. Diabetes mellitus. DISCUSSION: Continue aspirin and Coreg. Continue pain medications. Continue losartan. Advance diet, Resume Brilinta now (discussed with Urology). I will follow carefully. DC on eliza Curtis Norco Fortino Mcarthur Omar Syed MD Feb 04, 2020 11:05
[2020-02-04] MEDS ORDERED: NORCO 5-325 TA1 EAC1 ORAL (11:08)
[2020-02-04] MEDS ORDERED: COLACE100 MG ORAL (11:08)
[2020-02-04] MEDS ORDERED: VENTOLIN HFA18 GM INH (11:08)
[2020-02-04 12:00] VITALS: BP 134/74
[2020-02-04] MEDS ORDERED: HYDROcodone/Acetamin 5/325 tab ORAL PRN (13:30)
--- NOTE | 2020-02-04 15:37 | CDS Physician Query ---
PLEASE COMPLETE THE DOCUMENT BEFORE SIGNING Dear Dr Bi Ray M.D. Date: 02/04/2020 CDI/CDS Name: Emerson Rincon Clinical Documentation Statement: "64-year-old male who has undergone successful surgery consisting of right radical nephrectomy. ." [ H& P Bi Ray M.D. 02/02/20] IMPRESSION: 1. Postop day #1 status post nephrectomy. 2. CAD. 3. Chronic anticoagulation. 4. Hypertension. 5. Diabetes mellitus. Clinical Finding Show: 01/31 02/01 02/02 (18:50) (07:40) (08:20) Creatinine 1.4 1.6 2.1 BUN 12 15 18 GFR 51.2 43.9 32.1 Medication: Sodium Chloride IV Please Clarify the etiology/diagnosis associated with this findings: [] ARF w/ Tubular Necrosis [] ARF w/ Cortical Necrosis [] ARF w/ Medullary Necrosis [] Acute Renal Failure (unspecified) [] Other: If Chronic, please specify the stage: [] CKD Stage 1 [] CKD Stage 2 [] CKD Stage 3 [] CKD Stage 4 [] CKD Stage 5 [] ESRD [] Not applicable Condition Present on Admission: [] Yes [] No []Clinically Undeterminable Please also document in your Progress Notes and/or Discharge Summary and indicate if the condition was present on admission. MTDD
--- NOTE | 2020-02-06 09:00 | Operative Note - Dictated ---
DATE OF OPERATION: 02/01/2020 PREOPERATIVE DIAGNOSIS: Right renal mass. OPERATION: Laparoscopic right radical nephrectomy. POSTOPERATIVE DIAGNOSIS: Right renal mass. WEIGHT REDUCING TECHNICIAN: Saúl Auguste M.D. ANESTHESIA: General. FINDINGS: A 3.5 cm mass partially inside the parenchyma of the right kidney . INDICATION FOR SURGERY: The patient was diagnosed with renal mass. Treatment options were explained to him in great length including all potential complications. He agreed with the above procedure. PROCEDURE DESCRIPTION: The patient was brought to the operating room, placed in the right lateral decubitus position, prepped and draped in standard fashion. Under general anesthesia, the infraumbilical incision approximately 7 cm was made. Hand port was placed into the abdomen. Three additional 12 mm trocars were placed. Pneumoperitoneum was created to 15 mmHg. After that, dissection of the ascending colon and hepatic flexure was done exposing the vena cava and right renal pedicle. Gerota fascia was opened 3.5 cm lesion. Decision was made not to proceed with partial nephrectomy due to the quite significant portion of the tumor inside the renal collecting system. Using Endo-MAXI, the pedicle was transected and several Endo-GIAs were used to transect the . Kidney was removed for pathologic examination. There was no evidence of bleeding. Total estimated blood loss was approximately 20 mL. Surgicel and FloSeal and the pedicle. Wound was closed in multiple layers. [place] for the skin. Sponge and instrument counts were correct. Saúl Auguste M.D. DR: SARA JOB#: [id number] CC:
--- NOTE | 2020-02-06 15:24 | Discharge Summary ---
Discharge Summary Discharge Summary _ DATE OF ADMISSION: 02/01/2020 DATE OF DISCHARGE: 02/04/2020 DISCHARGED BY: Dr. Ray REASON FOR ADMISSION: 64 years old male with past medical history of hypertension, chronic anticoagulation with Brilinta, diabetes mellitus, chronic left bundle branch block, dyslipidemia, was admitted for elective surgery due to right renal mass. Postoperatively patient admitted for further management. CONSULTANTS: Urologist Dr. Auguste General surgeon Dr. Zuniga HOSPITAL COURSE: Patient admitted to medical surgical floor. Patient initially was kept n.p.o. Postoperative care provided. Patient was provided with IV hydration. Pain management was addressed as needed. Blood pressure was managed with losartan. As bowel function returned , patient started on clear liquid diet and was advanced as tolerated. Antiemetic were on board as needed. Blood sugar was managed with sliding scale of insulin. Mobilization and ambulation encouraged. Incentive spirometry was encouraged every 1 hour x 10 while in the bed. Diet was slowly advanced as tolerated. Pain controlled. Patient was mobilized; ambulatory status was encouraged. Patient was able to tolerate diet. Bowel regimen instituted. Brilinta was resumed after discussion with a urologist. Discharge instruction provided. Prescription provided. Patient clinically stabilized and was ready for discharge home. Outpatient follow-up with urologist as scheduled. FINAL DIAGNOSES: Right renal mass Status post right radical nephrectomy Coronary artery disease Hypertension Diabetes mellitus Chronic anticoagulation DISCHARGE MEDICATIONS: See Medication Reconciliation list. DISCHARGE INSTRUCTIONS: Patient was discharged home. Follow-up with the urologist as scheduled. I have been assigned to dictate discharge summary for this account. I was not involved in the patient's management. Petra Rodriguez NP Feb 06, 2020 15:24
== END 2020-02-04 15:20 | disposition home or self-care (01) | DRG 657 ==
LOC: SDSOVERFLO 09:12 → 3E 14:48
PROC: 0TT04ZZ Resection of Right Kidney, Percutaneous Endoscopic Approach (ICD-10-PCS; principal; 2020-02-01 12:15)
DX: D49.511 Neoplasm of unspecified behavior of right kidney (principal); D68.32 Hemorrhagic disorder due to extrinsic circulating anticoagulants; I25.10 Atherosclerotic heart disease of native coronary artery without angina pectoris; I10 Essential (primary) hypertension; E11.9 Type 2 diabetes mellitus without complications; Z79.01 Long term (current) use of anticoagulants; I44.7 Left bundle-branch block, unspecified; Z95.5 Presence of coronary angioplasty implant and graft; Z88.8 Allergy status to other drugs, medicaments and biological substances; Z79.84 Long term (current) use of oral hypoglycemic drugs; Z79.82 Long term (current) use of aspirin
CPT/HCPCS: 36415; 80048; 80053; 82962; 85025; 86850; 86900; 86901; 87081; 94003; 94150; 94640; 94664; J1815; J2250; J2405; J2710; U0002